=== PATIENT | female | born 1985 ===

== ENCOUNTER 2018-04-20 14:16 | Emergency (ER) | payer BC ==
--- NOTE | 2018-04-20 16:05 | UC ---
Throat Pain/Nasal Jeffrey HPI - HPI Summary HPI Summary: Pt c/o nasal congestion, PND, cough, bilateral ear fullness, ache and muffled hearing X 2 weeks. Also, pt c/o vaginal "itching" and white discharge. Pt reports that she used OTC monistat 3 day with little to no improvement. Pt denies risk for STD - History of Current Complaint Chief Complaint: UCEar Stated Complaint: BILATERAL EAR PAIN Time Seen by Provider: 04/20/18 15:54 Hx Obtained From: Patient Hx Last Menstrual Period: 03/26/18 ?: No Onset/Duration: Sudden Onset Severity: Moderate Pain Intensity: 5 Cough: Productive Associated Signs & Symptoms: Positive: Dysphagia, Other - PND - Epiglottits Risk Factors Epiglottis Risk Factors: Sudden Onset - Allergies/Home Medications Allergies/Adverse Reactions: Allergies Allergy/AdvReac Type Severity Reaction Status Date / Time azithromycin Allergy Hives Verified 04/20/18 15:11 peanut Allergy Anaphylatic Verified 04/20/18 15:11 Shock bee Allergy Anaphylatic Uncoded 04/20/18 15:11 Shock Home Medications: Home Medications EPINEPHrine [Epipen] 1 tab ONCE PRN 04/20/18 [History Confirmed 04/20/18] Fexofenadine/Pseudoephedrine [Kaitlin-D 24 Hour Tablet] 1 tab QAM 04/20/18 [ History Confirmed 04/20/18] Levonorgestrel-Ethin Estradiol [Levonor-Eth Estrad 0.1-0.02 mg] 1 tab DAILY 10/29 [History Confirmed 04/20/18] PMH/Surg Hx/FS Hx/Imm Hx Previously Healthy: Yes - Surgical History Surgical History: Yes Surgery Procedure, Year, and Place: cardiac ablation when pt 14 y/o - Family History Known Family History: Positive: Cardiac Disease - Social History Occupation: Employed Full-time Lives: With Family Alcohol Use: Occasionally Substance Use Type: None Smoking Status (MU): Never Smoked Tobacco Have You Smoked in the Last Year: No Review of Systems All Other Systems Reviewed And Are Negative: Yes Constitutional: Positive: Fatigue Skin: Positive: Negative Eyes: Positive: Negative ENT: Positive: Sore Throat, Ear Ache, Other - PND Respiratory: Positive: Cough Cardiovascular: Positive: Negative Gastrointestinal: Positive: Negative Genitourinary: Positive: Vaginal/Penile Itching, Vaginal/Penile Discharge Motor: Positive: Negative Neurovascular: Positive: Negative Musculoskeletal: Positive: Negative Neurological: Positive: Negative Psychological: Positive: Negative Is Patient Immunocompromised?: No Physical Exam Triage Information Reviewed: Yes Appearance: Well-Appearing Vital Signs: Initial Vital Signs Temp 99.5 F 04/20/18 15:14 Pulse 100 04/20/18 15:14 Resp 15 04/20/18 15:14 BP 123/82 04/20/18 15:14 Pulse Ox 100 04/20/18 15:14 Vital Signs Reviewed: Yes Eye Exam: Normal ENT: Positive: Nasal congestion, TM bulging, Other - PND Dental Exam: Normal Neck exam: Normal Respiratory Exam: Normal Respiratory: Positive: Normal breath sounds Cardiovascular Exam: Normal Musculoskeletal Exam: Normal Neurological Exam: Normal Psychological Exam: Normal Skin Exam: Normal Throat Pain/Nasal Course/Dx - Course Course Of Treatment: Pt declined vaginal exam and accepted self swab. - Differential Dx/Diagnosis Differential Diagnosis/HQI/PQRI: Influenza, URI Provider Diagnosis: Viral syndrome, Vaginitis Discharge - Sign-Out/Discharge Documenting (check all that apply): Patient Departure All imaging exams completed and their final reports reviewed: No Studies - Discharge Plan Condition: Stable Disposition: HOME Prescriptions: Fluconazole 150 MG TAB* [Diflucan 150 MG TAB*] 150 mg PO UC ONCE #1 tablet Patient Education Materials: Vaginitis (ED), Viral Syndrome (ED) Referrals: [facility] [Outside] - If Needed No Primary Care Phys,NOPCP [Primary Care Provider] - - Billing Disposition and Condition Condition: STABLE Disposition: Home
== END 2018-04-20 16:35 | disposition home or self-care (01) ==
LOC: UCCORT 14:16
DX: B34.9 Viral infection, unspecified (principal); N76.0 Acute vaginitis; R09.81 Nasal congestion; R09.82 Postnasal drip; H92.03 Otalgia, bilateral; R13.10 Dysphagia, unspecified; Z88.1 Allergy status to other antibiotic agents; Z91.030 Bee allergy status; Z91.010 Allergy to peanuts
CPT/HCPCS: 87480; 87510; 99202; G0463